=== PATIENT | male | born 1960 | race African-American/Black ===

== ENCOUNTER 2024-04-20 20:38 | Emergency (ER) | payer MEDICARE, OTHER ==
[~2024-04-20] VITALS: Ht 172.7 cm; Wt 83.9 kg
[2024-04-20 21:50] LABS: BASOPHILS % (AUTO) 0.2 % (0.0-2.0); EOSINOPHILS # (AUTO) 0.1 K/uL (0.0-0.7); EOSINOPHILS % (AUTO) 1.4 % (0.0-6.0); HEMATOCRIT 45 % (39-51); HEMOGLOBIN 14.8 g/dL (13.5-17.5); LYMPHOCYTES % (AUTO) 14.1 % (20.0-44.0); MEAN CORPUSCULAR HEMOGLOBIN 30 PG (26.0-33.0); MEAN CORPUSCULAR HGB CONC 33 g/dl (31.0-36.0); MEAN CORPUSCULAR VOLUME 92 fL (80-96); MONOCYTES # (AUTO) 0.9 K/uL (0.1-1.30); MONOCYTES % (AUTO) 11.5 % (2.0-12.0); NEUTROPHILS # (AUTO) 5.4 K/uL (1.8-8.9); NEUTROPHILS % (AUTO) 72.8 % (43.0-81.0); PLATELET COUNT (AUTO) 131 K/uL (150-450); RED BLOOD CELL COUNT(AUTO) 4.88 MIL/uL (4.5-6.0); RED CELL DISTRIBUTION WIDTH 14.1 % (11.5-15.0); WHITE BLOOD COUNT (AUTO) 7.4 K/uL (4.3-11.0)
[2024-04-20 22:03] LABS: ALBUMIN 3.7 g/dL (3.4-5.0); BILIRUBIN,DIRECT 0.3 mg/dL (0.0-0.2); BILIRUBIN,TOTAL 1.2 mg/dL (0.2-1.0); CALCIUM, SERUM 9.5 mg/dL (8.5-10.1); CREATININE 1.5 mg/dL (0.6-1.3); POTASSIUM 3.6 mmol/L (3.5-5.1); TOTAL PROTEIN, SERUM 7.9 g/dL (6.4-8.2)
[2024-04-20 22:10] LABS: INR 1.1 (0.91-1.10); PARTIAL THROMBOPLASTIN TIME 28.6 SEC (24.3-34.3); PROTHROMBIN TIME 11.6 SECS (9.2-11.1)
[2024-04-21] MEDS ORDERED: hydrALAZINE HCL IV 20 MG VIAL ONE (00:59)
[2024-04-21] MEDS ORDERED: ONDANSETRON HCL/PF 4 MG/2 ML VIAL ONE (00:59)
[2024-04-21] MEDS: ONDANSETRON HCL/PF - ER 4 MG/2 ML VIAL IV ONE (01:00)
[2024-04-21] MEDS: hydrALAZINE HCL IV 20 MG VIAL IV ONE ×2 (01:00→02:00)
[2024-04-21] MEDS: MORPHINE SULFATE INJ 2 MG/ML DISP.SYRIN IV ONE (01:00)
[2024-04-21] MEDS ORDERED: MORPHINE SULFATE INJ 2 MG/ML DISP.SYRIN ONE (01:00)
[2024-04-21] MEDS ORDERED: CLONIDINE HCL 0.1 MG TABLET ONE (02:57)
[2024-04-21] MEDS: CLONIDINE HCL 0.1 MG TABLET PO ONE (02:59)
[2024-04-21] MEDS ORDERED: NAPR-1009 PO (04:49)
[2024-04-21 05:06] VITALS: BP 100/70; TEMP 98.9; O2SAT 96
== END 2024-04-21 05:06 | disposition home or self-care (01) ==
LOC: ER 20:59
DX: S76.011A Strain of muscle, fascia and tendon of right hip, initial encounter (principal); M54.50 Low back pain, unspecified; R51.9 Headache, unspecified; R06.02 Shortness of breath; W18.39XA Other fall on same level, initial encounter; Y93.89 Activity, other specified; Y92.89 Other specified places as the place of occurrence of the external cause; Y99.8 Other external cause status
CPT/HCPCS: 99285; 70450; 71045; 93005; 72131; 73700; 85025; 80048; 80076; 36415; 84484; 85730; 86850; 96374; 96375; 96376; J0360; J2405 ×2; J2270

== ENCOUNTER 2024-11-18 20:52 | Emergency (ER) | payer MEDICARE, OTHER ==
[~2024-11-18] VITALS: Ht 177.8 cm; Wt 65.8 kg
[~2024-11-18 20:52] MED LIST: NAPR-1009 PO
[2024-11-19 00:27] VITALS: TEMP 98
[2024-11-19 11:30] VITALS: BP 145/76; O2SAT 100
== END 2024-11-19 13:53 | disposition home or self-care (01) ==
LOC: ER 20:53
DX: M54.2 Cervicalgia (principal); M54.50 Low back pain, unspecified; M79.605 Pain in left leg; M79.641 Pain in right hand; I10 Essential (primary) hypertension; F03.90 Unspecified dementia, unspecified severity, without behavioral disturbance, psychotic disturbance, mood disturbance, and anxiety; M47.816 Spondylosis without myelopathy or radiculopathy, lumbar region; W10.9XXA Fall (on) (from) unspecified stairs and steps, initial encounter; Y93.89 Activity, other specified; Y92.89 Other specified places as the place of occurrence of the external cause; Y99.8 Other external cause status
CPT/HCPCS: 99285; 72125; 73130; 73590 ×2; 72131; J7040